=== PATIENT | male | born 1995 | race Caucasian/White ===

== ENCOUNTER 2020-12-23 23:10 | Emergency (ER) | payer MEDICAID ==
[~2020-12-23] VITALS: Ht 167.6 cm; Wt 83.9 kg
[2020-12-23 23:25] VITALS: BP 116/67
[2020-12-24] LABS: BASOPHILS % (AUTO) 0.3 % (0.0-2.0); EOSINOPHILS # (AUTO) 0.1 K/uL (0-0.4); EOSINOPHILS % (AUTO) 0.6 % (0.0-4.0); HEMATOCRIT 46.7 % (36-52); HEMOGLOBIN 16.2 g/dL (12.0-18.0); LYMPHOCYTES # (AUTO) 2.6 K/uL (2.0-11.5); LYMPHOCYTES % (AUTO) 31.2 % (20.5-51.1); MEAN CORPUSCULAR HEMOGLOBIN 33 pg (27-31); MEAN CORPUSCULAR HGB CONC 35 g/dL (33-37); MEAN CORPUSCULAR VOLUME 94.8 fL (80-94); MONOCYTES # (AUTO) 0.5 K/uL (0.8-1.0); NEUTROPHILS # (AUTO) 5.2 K/uL (1.8-7.7); NEUTROPHILS % (AUTO) 61.9 % (42.2-75.2); PLATELET COUNT (AUTO) 312 K/uL (140-450); RED BLOOD CELL COUNT(AUTO) 4.93 MIL/uL (4.20-6.10); RED CELL DISTRIBUTION WIDTH 12.8 % (11.6-13.7); WHITE BLOOD COUNT (AUTO) 8.5 K/uL (4.8-10.8)
[2020-12-24 00:16] LABS: ALBUMIN 4.5 g/dL (3.4-5.0); ANION GAP 12.2 (8-16); CARBON DIOXIDE 26.6 mmol/L (21-32); CREATININE 1.1 mg/dL (0.6-1.3); POTASSIUM 3.8 mmol/L (3.5-5.1); TOTAL BILIRUBIN 0.7 mg/dL (0.0-1.0)
--- NOTE | 2020-12-24 01:16 | NUR ---
PT AMBULATED TO ER BED 7 W/ STEADY GAIT.
--- NOTE | 2020-12-24 02:25 | NUR ---
ERMD AT BEDSIDE FOR MEDICAL EVALUATION.
--- NOTE | 2020-12-24 02:26 | NUR ---
PT ASSESSMENT COMPLETED BY JIMMY, NO NURSING INTERVENTIONS NEEDED AT THIS TIME.
[2020-12-24 02:41] VITALS: BP 121/68
--- NOTE | 2020-12-24 02:41 | NUR ---
Patient discharged with v/s stable. Written and verbal after care instructions given and explained. Patient verbalized understanding. Ambulatory with steady gait. All questions addressed prior to discharge. Advised to follow up with PMD.
== END 2020-12-24 02:41 | disposition home or self-care (01) ==
LOC: MED 23:10
DX: R10.31 Right lower quadrant pain (principal)
CPT/HCPCS: 36415; 80053; 83690; 85025; 99283

== ENCOUNTER 2023-04-23 21:49 | Emergency (ER) | payer MEDICAID ==
[~2023-04-23] VITALS: Ht 165.1 cm; Wt 83.9 kg
[2023-04-23 21:56] VITALS: BP 148/76; PULSE 86; RESP 16; TEMP 97.4; O2SAT 100
[2023-04-23 23:25] VITALS: BP 132/81; PULSE 78; RESP 18; TEMP 97.4; O2SAT 100
== END 2023-04-23 23:25 | disposition home or self-care (01) ==
LOC: MED 21:49
DX: M25.522 Pain in left elbow (principal)
CPT/HCPCS: 99281

== ENCOUNTER 2023-05-19 22:06 | Emergency (ER) | payer MEDICAID ==
[~2023-05-19] VITALS: Ht 167.6 cm; Wt 79.4 kg
[2023-05-19 22:08] VITALS: BP 148/78; PULSE 65; RESP 16; TEMP 97.6; O2SAT 99
[2023-05-19] MEDS ORDERED: BEN10 PO (23:14)
[2023-05-19] MEDS ORDERED: OMEP40EC23 PO (23:14)
[2023-05-19 23:22] VITALS: BP 132/81; PULSE 71; RESP 18; O2SAT 98
== END 2023-05-19 23:22 | disposition home or self-care (01) ==
LOC: MED 22:06
DX: R07.81 Pleurodynia (principal); R10.9 Unspecified abdominal pain; Z79.899 Other long term (current) drug therapy
CPT/HCPCS: 71101; 93005; 99284